=== PATIENT | female | born 1975 | race Caucasian/White ===

== ENCOUNTER 2019-01-10 06:05 | Inpatient (IN) | payer MEDICARE, OTHER ==
[~2019-01-10] VITALS: Ht 160 cm; Wt 67.1 kg
[2019-01-10] MEDS ORDERED: BUPIVACAINE/EPI PF 0.25% 30 ML VIAL ONE (07:07)
[2019-01-10 07:15] LABS: *BILIRUBIN,URIN NEGATIVE (NEGATIVE); *BLOOD, URINE 1+ (NEGATIVE); *CLARITY,URINE SLIGHTLY CLOUDY (CLEAR); *COLOR,URINE YELLOW (YELLOW); *KETONES,URINE NEGATIVE (NEGATIVE); *UROBILINOGEN,URINE 0.2 E.U./dl (NORMAL); LEUKOCYTE ESTERASE ,URINE NEGATIVE (NEGATIVE); NITRITE, URINE NEGATIVE (NEGATIVE); UGLUCOSE NEGATIVE (NEGATIVE)
[2019-01-10 07:24] LABS: *URINE HCG, QUAL NEGATIVE (NEGATIVE); BACTERIA,URINE FEW /HPF (NONE SEEN); SQUAMOUS EPITHELIAL CELL,UR MODERATE /HPF (NONE SEEN); WBC,URINE 0-3 /HPF (0-3)
[2019-01-10] MEDS ORDERED: FENTANYL CITRATE 250 MCG/5 ML AMPUL ONE (07:28)
[2019-01-10] MEDS ORDERED: MIDAZOLAM HCL 2 MG/2 ML VIAL ONE (07:28)
[2019-01-10] MEDS ORDERED: ROCURONIUM BROMIDE 50 MG/5 ML VIAL ONE (07:29)
[2019-01-10] MEDS ORDERED: MEPERIDINE 25 MG/1 ML DISP.SYRIN ONE (07:29)
[2019-01-10] MEDS ORDERED: METHYLENE BLUE 50 MG/10 ML AMPUL (0.5%) ONE (09:24)
[2019-01-10] MEDS ORDERED: FENTANYL CITRATE 100 MCG/2 ML AMPUL ONE (10:24)
[2019-01-10] MEDS ORDERED: ONDANSETRON 4 MG/2 ML VIAL ONE (10:42)
[2019-01-10 11:45] VITALS: BP 96/37
--- NOTE | 2019-01-10 12:00 | NUR ---
HANDS OFF REPORT RECEIVED. PT JUST GOT OUT OF SURGERY. FAMILY AT BEDSIDE. PT IN NO ACUTE RESPIRATORY DISTRESS. PT WITH SEQUENTIAL DEVICE. SAFETY AND COMFORT PROVIDED. WILL CONTINUE TO MONITOR.
[2019-01-10 12:15] VITALS: BP 95/48
[2019-01-10] MEDS: MORPHINE SULFATE 4 MG/1 ML DISP.SYRIN IV PRN ×5 (12:37→23:00)
[2019-01-10 13:15] VITALS: BP 104/55
[2019-01-10] MEDS: IV D5LR 1,000 ML IV PRN ×2 (13:38→21:38)
[2019-01-10] MEDS: ACETAMINOPHEN/CODEINE 300-30 MG TABLET PO PRN (13:45)
[2019-01-10 14:15] VITALS: BP 110/62
[2019-01-10] MEDS ORDERED: LIDOCAINE-MPF 2% 5 ML VIAL MC ONE (15:05)
[2019-01-10] MEDS ORDERED: GLYCOPYRROLATE 0.2 MG/ML VIAL MC ONE (15:05)
[2019-01-10] MEDS ORDERED: PROPOFOL 200 MG/20 ML BOTTLE IV ONE (15:05)
[2019-01-10] MEDS ORDERED: METOCLOPRAMIDE HCL 10 MG/2 ML VIAL IV ONE (15:05)
[2019-01-10] MEDS ORDERED: SEVOFLURANE 250 ML BOTTLE IH ONE (15:05)
[2019-01-10] MEDS ORDERED: ONDANSETRON 4 MG/2 ML VIAL IV ONE (15:05)
[2019-01-10] MEDS ORDERED: NEOSTIGMINE METHYLSULFATE 10 MG/10 ML VIAL IV ONE (15:05)
[2019-01-10] MEDS: CEFAZOLIN 1 G in IV DEXTROSE 5% 50 ML IV SCH ×2 (17:27→23:02)
--- NOTE | 2019-01-10 19:00 | NUR ---
CALLED IMPROVEMENT ENGINEER FOR [facility]. PT IN NO ACUTE DISTRESS. WILL CONTINUE TO MONITOR.
--- NOTE | 2019-01-10 19:37 | NUR ---
PT IN NO ACUTE DISTRESS. PT IV INTACT. SAFETY AND COMFORT PROVIDED. PAIN MEDICATION GIVEN.PT TOLERATED IT WELL. ALL NEEDS ARE MET. WILL ENDORSE TO INCOMING NURSE FOR CONTINUITY OF CARE.
[2019-01-10 20:12] VITALS: BP 101/61
[2019-01-11 00:35] VITALS: BP 102/61
[2019-01-11] MEDS: MORPHINE SULFATE 4 MG/1 ML DISP.SYRIN IV PRN ×8 (01:42→23:19)
[2019-01-11] MEDS: ONDANSETRON 4 MG/2 ML VIAL IV PRN ×2 (03:37→13:00)
--- NOTE | 2019-01-11 05:10 | NUR ---
NOTIFIED MD EMANUEL OF LOW URINE ALYSSA COLORED OUTPUT IN WONG OF 100ML IN 5 HOURS. MD EMANUEL ORDERED HGB STAT AND 500ML OF NS BOLUS. CARRIED OUT ORDER.
[2019-01-11] MEDS ORDERED: IV NORMAL SALINE 500 ML BAG IV ONE (05:14)
[2019-01-11 05:20] VITALS: BP 101/57
[2019-01-11 05:55] LABS: BASOPHILS % (AUTO) 0.3 % (0.0-2.0); EOSINOPHILS # (AUTO) 0.1 K/uL (0.0-0.7); EOSINOPHILS % (AUTO) 0.5 % (0.0-7.0); HEMATOCRIT 36.4 % (31.2-41.9); HEMOGLOBIN 12.2 g/dL (10.9-14.3); LYMPHOCYTES # (AUTO) 0.9 K/uL (20.0-40.0); LYMPHOCYTES % (AUTO) 7.5 % (20.5-51.5); MEAN CORPUSCULAR HEMOGLOBIN 31.8 uug (24.7-32.8); MEAN CORPUSCULAR HGB CONC 34 g/dL (32.3-35.6); MEAN CORPUSCULAR VOLUME 94.3 fL (75.5-95.3); MONOCYTES # (AUTO) 0.8 K/uL (2.0-10.0); MONOCYTES % (AUTO) 6.4 % (0.0-11.0); NEUTROPHILS # (AUTO) 10.1 K/uL (1.8-8.9); NEUTROPHILS % (AUTO) 85.3 % (38.5-71.5); PLATELET COUNT (AUTO) 205 K/uL (179-408); RED BLOOD CELL COUNT(AUTO) 3.86 MIL/uL (3.63-4.92); WHITE BLOOD COUNT (AUTO) 11.9 K/uL (3.8-11.8)
--- NOTE | 2019-01-11 06:00 | NUR ---
NOTIFIED MD EMANUEL OF HGB RESULTS, HGB AND VITALS STABLE. AWARE , NO NEW ORDERS
[2019-01-11] MEDS: LEVOTHYROXINE SODIUM 75 MCG TABLET PO SCH ×2 (06:11→06:16)
[2019-01-11 06:30] LABS: CARBON DIOXIDE 27 mmol/L (21-32); CHLORIDE 103 mmol/L (98-107); CREATININE 0.5 mg/dL (0.6-1.3); GLUCOSE 138 mg/dL (74-106); UREA NITROGEN, BLOOD 6 mg/dL (7-18)
--- NOTE | 2019-01-11 06:59 | NUR ---
PATIENT IS STABLE, NO ACUTE CHANGES , PAIN MANAGED BY MORPHINE AND ICE PACKS. SURGICAL DRESSING INTACT AND DRY. NO SOB , IN NO DISTRESS. MOVED ROOMS PER PATIENT REQUEST WITH ALL BELONGINGS. ENDORSED TO AM SHIFT.
--- NOTE | 2019-01-11 07:45 | NUR ---
Received patient awake in bed. AAOx4. Patient appears anxious at this time. Complaining of incisional site pain on the lower medial abdomen; will medicate appropriately. Safety measures implemented. Call light within reach. Will continue to monitor.
[2019-01-11] MEDS: IV D5LR 1,000 ML IV PRN ×2 (08:26→20:45)
[2019-01-11] MEDS: CITALOPRAM 20 MG TABLET PO SCH (09:00)
[2019-01-11] MEDS: ACETAMINOPHEN/CODEINE 300-30 MG TABLET PO PRN ×2 (10:58→16:50)
--- NOTE | 2019-01-11 11:00 | NUR ---
Instructed patient on how to use incentive spirometer.
[2019-01-11 11:13] VITALS: BP 91/45
--- NOTE | 2019-01-11 12:00 | NUR ---
Seen by Dr. Martin. Vital signs are stable. Surgical site looks clean and dry with no s/s of infection.
[2019-01-11 15:16] VITALS: BP 108/56
[2019-01-11] MEDS ORDERED: CITA20TA19 PO (15:47)
[2019-01-11] MEDS ORDERED: LEVO75TA PO (15:48)
--- NOTE | 2019-01-11 18:20 | NUR ---
Per Dr. Martin orders; advanced to regular diet and to have patient sit on chair x2 for 30 minutes; patient tolerated regular foods and able to transfer to chair with 1 person assist and walker. Pain managed appropriately throughout process. In no acute distress at this time. Will endorse care accordingly.
--- NOTE | 2019-01-11 19:45 | NUR ---
Received patient resting in bed, easily to arouse. A/Ox4. No distress noted. Complains of some pain to the abdomen, but able to tolerate. No complaints of SOB, patient is 94% on room air. Nichols catheter is intact and draining well. IVF running on the left hand, no s/s of infection or infiltration noted. Patient knows that Dr. Martin encouraged her to get up and walk to the chair and sit for 30 min, she did get up twice today, I asked if we can try again tonight and said she is too tired to get up, she wants to rest and I told her we can try in the morning and she agreed. She also said Dr. Martin wants her to get up tomorrow and walk around the hallway and she said she will do that as well. Encouraged the use of the incentive spirometer and patient is aware, says she does it every hour while she's awake. Safety measures initiated. Bed is low and locked, call light within reach. Will continue to monitor.
[2019-01-11 20:40] VITALS: BP 98/54
[2019-01-11 23:15] VITALS: BP 114/59
--- NOTE | 2019-01-11 23:59 | NUR ---
Patient complaining of pain, checked vitals before administering pain medication. Vitals WNL. Will continue to monitor.
[2019-01-12] MEDS: MORPHINE SULFATE 4 MG/1 ML DISP.SYRIN IV PRN ×5 (01:12→23:18)
[2019-01-12] MEDS: ACETAMINOPHEN/CODEINE 300-30 MG TABLET PO PRN ×4 (03:40→20:02)
[2019-01-12 03:43] VITALS: BP 115/57
[2019-01-12] MEDS: LEVOTHYROXINE SODIUM 75 MCG TABLET PO SCH (06:12)
[2019-01-12] MEDS: ONDANSETRON 4 MG/2 ML VIAL IV PRN ×2 (06:17→13:53)
[2019-01-12 06:33] LABS: BASOPHILS % (AUTO) 0.3 % (0.0-2.0); EOSINOPHILS % (AUTO) 0.1 % (0.0-7.0); HEMATOCRIT 31.9 % (31.2-41.9); HEMOGLOBIN 10.9 g/dL (10.9-14.3); LYMPHOCYTES # (AUTO) 1.4 K/uL (20.0-40.0); MEAN CORPUSCULAR HEMOGLOBIN 32.1 uug (24.7-32.8); MEAN CORPUSCULAR HGB CONC 34 g/dL (32.3-35.6); MEAN CORPUSCULAR VOLUME 94.3 fL (75.5-95.3); MONOCYTES # (AUTO) 0.7 K/uL (2.0-10.0); MONOCYTES % (AUTO) 6.6 % (0.0-11.0); NEUTROPHILS # (AUTO) 8.5 K/uL (1.8-8.9); PLATELET COUNT (AUTO) 201 K/uL (179-408); RED BLOOD CELL COUNT(AUTO) 3.38 MIL/uL (3.63-4.92); WHITE BLOOD COUNT (AUTO) 10.7 K/uL (3.8-11.8)
[2019-01-12 06:47] LABS: CARBON DIOXIDE 28 mmol/L (21-32); CHLORIDE 103 mmol/L (98-107); CREATININE 0.5 mg/dL (0.6-1.3); GLUCOSE 129 mg/dL (74-106); UREA NITROGEN, BLOOD 5 mg/dL (7-18)
--- NOTE | 2019-01-12 06:52 | NUR ---
Asked patient if she could try to get up and sit in the chair as she said she would, but she said she would rather try later since she is going to walk around the unit she wants to rest right now. Encouraged patient to use incentive spirometer and she said she will. Will endorse to next shift.
[2019-01-12] MEDS: IV D5LR 1,000 ML IV PRN (07:03)
--- NOTE | 2019-01-12 08:00 | NUR ---
Received patient asleep in bed. No s/s of acute distress. Safety measures implemented. Call light within reach. Will continue to monitor.
[2019-01-12] MEDS: CITALOPRAM 20 MG TABLET PO SCH (09:00)
[2019-01-12 11:30] VITALS: BP 104/60
[2019-01-12 15:37] VITALS: BP 107/73
[2019-01-12] MEDS ORDERED: IBUPROFEN 800 MG TABLET PO PRN (17:15)
[2019-01-12] MEDS ORDERED: MORPHINE SULFATE 4 MG/1 ML DISP.SYRIN IM PRN (17:15)
[2019-01-12] MEDS ORDERED: IV LACTATED RINGERS SOLUTION 1,000 ML IV PRN (17:15)
--- NOTE | 2019-01-12 18:14 | NUR ---
Patient complaining of incision site pain; medicated appropriately with PRN Tylenol #[address] Martin orders, patient ambulated around floor x2. Patient tolerated. Incision clean and dry. No s/s of infection. 4x4 Gauze folded along incision site.
--- NOTE | 2019-01-12 19:20 | NUR ---
Pt received in bed, awake, alert and verbally responsive. S/P abdomino/pelvic surgery day 2. Pain level is 6-8/10. With elevated temp of 99.4. Pt concerned of having a fever or infection, explained to her that current temperature is not really considered a fever, explained that it will be monitored and managed as ordered. Refused Morphine at this time, requesting for Tylenol # 3. Will administer.
[2019-01-12 19:46] VITALS: BP 91/54
--- NOTE | 2019-01-12 22:30 | NUR ---
Pt complained of 10/10 pain. Requesting Morphine 5 mg. Order says IM, clarified with MD, received TO to change it to IV. Pharmacy notified to verify order. Will administer and re-assess.
[2019-01-13] VITALS: BP 103/65
[2019-01-13] MEDS: ACETAMINOPHEN/CODEINE 300-30 MG TABLET PO PRN ×6 (03:06→18:19)
[2019-01-13] MEDS: MORPHINE SULFATE 4 MG/1 ML DISP.SYRIN IV PRN (05:02)
[2019-01-13] MEDS: LEVOTHYROXINE SODIUM 75 MCG TABLET PO SCH (06:07)
[2019-01-13 06:25] VITALS: BP 94/57
--- NOTE | 2019-01-13 06:44 | NUR ---
Pt with constant pain throughout shift, Tylenol # 3 given every 3 hours, as requested by patient and Morphine 5mg given 2x (around 11 pm and 5 am). Morphine 5mg given a little earlier at 5 am before sharma catheter was discontinued as per patient's request. Sharma catheter discontinued at 0530, with 500cc output. Assisted patient to bathroom, able to urinate 1x. No other signs of acute distress noted. O2 saturation ranges from 87-93% on RA, but patient denies difficulty of breathing. Kept O2 off per MD instructions. Pedal pulses present. No abnormal or copious discharge on surgery site. Steri strips in place. Clean Gauze placed between abdominal folds replaced. Slight irritation noted on the left lateral side of incision site due to previous dressings. Kept clean and dry. Pt stable at this time. Encouraged to continue incentive spirometer and ambulation today. Verbalized understanding.
[2019-01-13 07:17] LABS: BASOPHILS % (AUTO) 0.4 % (0.0-2.0); EOSINOPHILS # (AUTO) 0.4 K/uL (0.0-0.7); HEMATOCRIT 32.8 % (31.2-41.9); HEMOGLOBIN 11.1 g/dL (10.9-14.3); LYMPHOCYTES # (AUTO) 2.2 K/uL (20.0-40.0); LYMPHOCYTES % (AUTO) 26.3 % (20.5-51.5); MEAN CORPUSCULAR HEMOGLOBIN 32.8 uug (24.7-32.8); MEAN CORPUSCULAR HGB CONC 34 g/dL (32.3-35.6); MONOCYTES # (AUTO) 0.6 K/uL (2.0-10.0); MONOCYTES % (AUTO) 6.9 % (0.0-11.0); NEUTROPHILS # (AUTO) 5.1 K/uL (1.8-8.9); NEUTROPHILS % (AUTO) 61.4 % (38.5-71.5); PLATELET COUNT (AUTO) 204 K/uL (179-408); RED BLOOD CELL COUNT(AUTO) 3.38 MIL/uL (3.63-4.92); WHITE BLOOD COUNT (AUTO) 8.3 K/uL (3.8-11.8)
[2019-01-13] MEDS: CITALOPRAM 20 MG TABLET PO SCH ×2 (09:00→11:48)
[2019-01-13 11:20] VITALS: BP 105/63
[2019-01-13 15:14] VITALS: BP 109/58
--- NOTE | 2019-01-13 19:00 | NUR ---
Patient complained of lower abdominal pain at surgical site throughout shift; medicated appropriately. Ambulating better with walker and standby assist. Safety and comfort provided at all times. All needs attended. Will endorse care accordingly.
[2019-01-13 20:21] VITALS: BP 108/66
[2019-01-13] MEDS: MORPHINE SULFATE 4 MG/1 ML DISP.SYRIN IM PRN (21:14)
[2019-01-14 00:09] VITALS: BP 106/66
[2019-01-14] MEDS: MORPHINE SULFATE 4 MG/1 ML DISP.SYRIN IM PRN (03:55)
[2019-01-14] MEDS: ONDANSETRON 4 MG/2 ML VIAL IV PRN (04:14)
[2019-01-14 05:44] VITALS: BP 102/63
[2019-01-14] MEDS: LEVOTHYROXINE SODIUM 75 MCG TABLET PO SCH (06:14)
--- NOTE | 2019-01-14 07:00 | NUR ---
patient received at beginning of shift in bed. no sign of acute distress and v/s stable throughout shift. safety and comfort measures provided at all times. morphine administered x2. ambulated around the barrera x2. will continue to monitor and endorse accordingly.
--- NOTE | 2019-01-14 08:00 | NUR ---
RECEIVED PT RESTING COMFORTABLY IN BED. NO ACUTE DISTRESS OR SOB NOTED. BED LOCKED AND IN LOW POSITION. PT HAS A HEADACHE. WILL MANAGE WITH MEDS. PT ALERT AND ORIENTED X3. PT PLEASANT AND COOPERATIVE. WILL CONTINUE TO MONITOR FOR SAFETY AND COMFORT.
[2019-01-14] MEDS: CITALOPRAM 20 MG TABLET PO SCH (08:03)
[2019-01-14] MEDS: ACETAMINOPHEN/CODEINE 300-30 MG TABLET PO PRN (08:04)
[2019-01-14] MEDS ORDERED: MAGNESIUM HYDROXIDE 30 ML LIQUID UDC PO ONE (10:45)
[2019-01-14 12:25] VITALS: BP 110/69
--- NOTE | 2019-01-14 14:00 | NUR ---
PT HAS BEEN DISCHARGED. NO ACUTE DISTRESS OR SOB NOTED. PT ALERT AND ORIENTED X3. DISCHARGE INSTRUCTIONS GIVEN TO PT WITH GOOD UNDERSTANDING. MEDICATION PRESCRIPTION GIVEN. BELONGINGS RETURNED. MEDICATIONS RETURNED. IV REMOVED INTACT. INCISION CARE INSTRUCTIONS GIVEN. INCISION PICTURES TAKEN. PT ESCORTED TO [facility] BY RN. PT OWN TRANSPORT HOME WITH IN PRIVATE TRANSPORTATION.
== END 2019-01-14 14:00 | disposition home or self-care (01) | DRG 743 ==
LOC: DS 06:05 → MEDSURG3 12:11
PROVIDERS: ADMIT Obstetrics & Gynecology; ATTEND Obstetrics & Gynecology
PROC: 0UT90ZL Resection of Uterus, Supracervical, Open Approach (ICD-10-PCS; principal; 2019-01-10)
PROC: 0DNU0ZZ Release Omentum, Open Approach (ICD-10-PCS; 2019-01-10)
PROC: 0TNB0ZZ Release Bladder, Open Approach (ICD-10-PCS; 2019-01-10)
PROC: 0WQF0ZZ Repair Abdominal Wall, Open Approach (ICD-10-PCS; 2019-01-10)
DX: D25.1 Intramural leiomyoma of uterus (principal); D25.2 Subserosal leiomyoma of uterus; N92.0 Excessive and frequent menstruation with regular cycle; N32.89 Other specified disorders of bladder; K66.0 Peritoneal adhesions (postprocedural) (postinfection); K43.9 Ventral hernia without obstruction or gangrene; N92.1 Excessive and frequent menstruation with irregular cycle
CPT/HCPCS: 36415; 84703; 85025; 86850; 86900; 86901; A4649; A4663; G0378; J0690; J2175; J2250; J2270; J2405; J2710; J2765; J3010; J3490; J7040; J7060; J7120